=== PATIENT | female | born 1965 | race Caucasian/White ===

== ENCOUNTER 2019-12-09 09:24 | Outpatient (CLI) | payer BC, OTHER ==
[2019-12-09 17:16] LABS: SARS-CoV-2 MS2 Positive; SARS-CoV-2 N Gene Negative; SARS-CoV-2 S Gene Negative; SARS-CoV-2 orf1ab Negative
== END 2019-12-09 09:25 | disposition home or self-care (01) ==
LOC: ERS 09:24 → LAB 09:25
PROVIDERS: ATTEND Internal Medicine Gastroenterology
DX: R13.10 Dysphagia, unspecified (principal); Z11.59 Encounter for screening for other viral diseases
CPT/HCPCS: 87635; U0003

== ENCOUNTER 2019-12-11 08:57 | Outpatient (CLI) | payer BC ==
--- NOTE | 2019-12-11 11:46 | RAD ---
Barium swallow esophagram double contrast: DATE: 12/11/2019 HISTORY: 54-year-old female with dysphagia R 13.10 TECHNIQUE: Upright administration of effervescent granules, thick liquid barium, and barium tablet with water. Prone SOSA straw administration of thin liquid barium. COMPARISON: 07/11/2012 from [facility]. FINDINGS: The previously demonstrated small sliding hiatal hernia has become larger, now with approximately 20% of the stomach superior to the diaphragm. Barium tablet passes rapidly into the stomach; no high-grade stricture. The esophagus has normal motility, distensibility, and mucosal pattern. Signifi cant gastroesophageal reflux is demonstrated. There is a minimal Schatzki ring which does not cause significant stenosis. IMPRESSION: 1. Interval increase in size of small-moderate size sliding hiatal hernia, now involving 20% of the s tomach. 2. Minimal Schatzki ring does not cause significant stenosis. 3. Significant gastroesophageal reflux.
== END 2019-12-11 08:58 | disposition home or self-care (01) ==
LOC: RAD 08:57
PROVIDERS: ATTEND Internal Medicine Gastroenterology
DX: R13.10 Dysphagia, unspecified (principal); K21.9 Gastro-esophageal reflux disease without esophagitis; K22.2 Esophageal obstruction; K44.9 Diaphragmatic hernia without obstruction or gangrene
CPT/HCPCS: 74220

== ENCOUNTER 2019-12-24 06:38 | Outpatient (CLI) | payer BC, OTHER ==
[2019-12-24 17:35] LABS: SARS-CoV-2 MS2 Positive; SARS-CoV-2 N Gene Negative; SARS-CoV-2 S Gene Negative; SARS-CoV-2 orf1ab Negative
== END 2019-12-24 06:39 | disposition home or self-care (01) ==
LOC: LABBT 06:38
PROVIDERS: ATTEND Surgery
DX: Z01.812 Encounter for preprocedural laboratory examination (principal); Z11.59 Encounter for screening for other viral diseases; K44.9 Diaphragmatic hernia without obstruction or gangrene; K21.9 Gastro-esophageal reflux disease without esophagitis
CPT/HCPCS: 87635; U0003

== ENCOUNTER 2019-12-29 07:00 | Outpatient (CLI) | payer BC, OTHER ==
[2019-12-29 12:58] LABS: #Basophils 0.1 thou/uL (0.0-0.2); #Eosinphils 0.2 thou/uL (0.0-0.7); #Lymphocytes 1.8 thou/uL (1.20-3.40); #Monocytes 0.7 thou/uL (0.11-0.59); #Neutrophils 4.8 thou/uL (1.40-6.50); %Basophils 0.8 % (0.0-1.0); %Eosinophils 2.9 % (0.0-10.0); %Lymphocytes 23.8 % (21.0-51.0); %Monocytes 8.9 % (0.0-10.0); %Neutrophils 63.7 % (42.0-75.0); Hemoglobin 13.6 g/dL (12.0-16.0); Mean Corpuscular HGB CONC 32.9 g/dL (32.0-36.0); Mean Corpuscular Hemoglobin 30.4 pg (27.0-31.0); Mean Corpuscular Volume 92.5 fL (78.0-98.0); Mean Platelet Volume 9.5 fL (7.4-10.4); Platelet Count 191 thou/uL (130-400); RBC Distribution Width 11.5 % (11.5-14.5); Red Blood Cell (RBC) Count 4.47 mill/uL (4.20-5.40); White Blood Cell (WBC) Count 7.6 thou/uL (4.8-10.8)
[2019-12-29 13:22] LABS: ALT (SGPT) 53 U/L (8-55); AST (SGOT) 33 U/L (5-34); Albumin 4.2 g/dL (3.5-5.0); Alkaline Phosphatase 61 U/L (40-110); Anion Gap 12 mmol/L (10-20); BUN (Urea Nitrogen) 18 mg/dL (9.8-20.1); Bilirubin, Total 0.5 mg/dL (0.2-1.2); Calc. Creatinine Clearance 0 mL/min (70-130); Calcium 9.2 mg/dL (7.8-10.44); Carbon Dioxide 29 mmol/L (22-29); Chloride 105 mmol/L (98-107); Estimated GFR-MDRD 76; Globulin 3.1 g/dL (2.4-3.5); Glucose 86 mg/dL (70-105); Potassium 3.5 mmol/L (3.5-5.1); Protein, Total 7.3 g/dL (6.0-8.3); Sodium 142 mmol/L (136-145)
[2019-12-29 22:22] LABS: SARS-CoV-2 MS2 Positive; SARS-CoV-2 N Gene Negative; SARS-CoV-2 S Gene Negative; SARS-CoV-2 orf1ab Negative
== END 2019-12-29 07:01 | disposition home or self-care (01) ==
LOC: LABBT 07:00
PROVIDERS: ATTEND Surgery
DX: Z01.818 Encounter for other preprocedural examination (principal); Z11.59 Encounter for screening for other viral diseases; K21.9 Gastro-esophageal reflux disease without esophagitis; K44.9 Diaphragmatic hernia without obstruction or gangrene
CPT/HCPCS: 80053; 85025; 87635; 93005; 93010; U0003

== ENCOUNTER 2019-12-31 10:10 | Inpatient (IN) | payer BC, OTHER ==
[2019-12-29 11:34] VITALS: BMI 23.6
[2019-12-31] MEDS ORDERED: Scopolamine 1.5 mg/72 hour Patch ONE (10:54)
[2019-12-31] MEDS ORDERED: Midazolam HCl 2 mg/2 ml Vial ONE (10:54)
[2019-12-31] MEDS ORDERED: Ethanolamine Oleate 5% 2 ml Ampule ONE (11:08)
[2019-12-31] MEDS ORDERED: Bupivacaine 0.25% HCL 30 ML VIAL ONE (11:08)
[2019-12-31] MEDS ORDERED: Lidocaine 1% w/Epinephrine 1:100K 20 ML VIAL ONE (11:08)
[2019-12-31] MEDS ORDERED: Fentanyl 250 MCG/5 ML VIAL ONE (11:40)
[2019-12-31] MEDS ORDERED: Famotidine/PF 20 mg/2ml Vial ONE (11:54)
[2019-12-31] MEDS ORDERED: Propofol 500 MG/50 ML VIAL ONE (11:55)
[2019-12-31] MEDS ORDERED: Lidocaine 1% PF 5 ML VIAL ONE (13:09)
[2019-12-31] MEDS ORDERED: EPHEDRINE 25 MG/5 ML SYRINGE ONE (13:09)
[2019-12-31] MEDS ORDERED: Rocuronium Bromide 10 MG/ML (10ML VIAL) ONE (13:09)
[2019-12-31] MEDS ORDERED: Glycopyrrolate 0.2 MG/ML 5 ML SYRINGE ONE (13:09)
[2019-12-31] MEDS ORDERED: Metoclopramide HCl 10 MG/2 ML VIAL ONE (13:09)
[2019-12-31] MEDS ORDERED: Dexamethasone 20 MG/5 ML VIAL ONE (13:09)
[2019-12-31] MEDS ORDERED: PROPOFOL 200 MG/20 ML VIAL ONE (13:09)
[2019-12-31] MEDS ORDERED: Ondansetron PF 4 MG/2 ML Vial ONE (13:09)
[2019-12-31] MEDS ORDERED: SUGAMMADEX SODIUM 200 MG/2 ML VIAL ONE (13:26)
[2019-12-31] MEDS ORDERED: PROPOFOL 20 ML ONE (13:27)
[2019-12-31] MEDS ORDERED: diphenhydrAMINE 50 MG/ML VIAL IVP PRN ×2 (13:56→15:11)
[2019-12-31] MEDS ORDERED: Hydrocodone-Acetamin 15 ML UDCUP PO PRN (13:56)
[2019-12-31] MEDS ORDERED: Ondansetron PF 4 MG/2 ML Vial IVP PRN ×2 (13:56→15:11)
[2019-12-31] MEDS ORDERED: hydrALAZINE 20 MG/ML VIAL SLOW IVP PRN (13:56)
[2019-12-31] MEDS ORDERED: Dextrose 5% in Water 1,000 ML IV PRN (13:56)
[2019-12-31] MEDS ORDERED: Promethazine HCl 25 MG/ML VIAL IM PRN ×2 (13:56→15:11)
[2019-12-31] MEDS ORDERED: Dextrose 50% Abboject 50 ML SYRINGE SLOW IVP PRN (13:56)
[2019-12-31] MEDS ORDERED: Sodium Chloride 0.9% (PF) 10 ML VIAL FS PRN (14:23)
[2019-12-31] MEDS ORDERED: Fentanyl 100 MCG/2 ML VIAL ONE (14:49)
[2019-12-31] MEDS ORDERED: Naloxone HCl 0.4 mg/ml Vial IV PRN (15:11)
[2019-12-31] MEDS ORDERED: fentaNYL Citrate/PF 2,000 MCG in Sodium Chloride 0.9% 60 ML IV PRN (15:11)
[2019-12-31] MEDS ORDERED: Zolpidem Tartrate 5 MG TAB PO PRN (15:11)
[2019-12-31] MEDS ORDERED: diphenhydrAMINE 25 MG CAP PO PRN (15:11)
[2019-12-31] MEDS ORDERED: diphenhydrAMINE 50 MG/ML VIAL IM PRN (15:11)
[2019-12-31] MEDS ORDERED: Communication Order-Pharmacy FS PRN (15:15)
[2019-12-31] MEDS ORDERED: Promethazine HCl 25 MG/ML VIAL ONE (15:46)
[2019-12-31] MEDS: D5 1/2 NS w/20 mEq KCL 1,000 ML IV SCH ×2 (17:49→20:33)
[2019-12-31] MEDS: CEFAZOLIN 2 GM in Premix Bag 1 BAG IVPB SCH (17:50)
[2019-12-31] MEDS: Ketorolac Tromethamine 30 MG/ML VIAL IVP SCH ×2 (17:53→23:36)
[2019-12-31] MEDS ORDERED: Ketorolac Tromethamine 30 MG/ML VIAL IVP SCH (18:00)
[2019-12-31] MEDS: Carvedilol 3.125 MG TAB PO SCH (20:35)
[2019-12-31] MEDS ORDERED: Amlodipine 5 MG TAB PO SCH (21:00)
[2020-01-01] MEDS: CEFAZOLIN 2 GM in Premix Bag 1 BAG IVPB SCH (03:02)
[2020-01-01] MEDS: D5 1/2 NS w/20 mEq KCL 1,000 ML IV SCH (05:33)
[2020-01-01] MEDS: Ketorolac Tromethamine 30 MG/ML VIAL IVP SCH (05:33)
[2020-01-01 05:44] LABS: #Lymphocytes 0.7 thou/uL (1.20-3.40); #Monocytes 0.6 thou/uL (0.11-0.59); #Neutrophils 9.6 thou/uL (1.40-6.50); %Basophils 0.1 % (0.0-1.0); %Eosinophils 0.1 % (0.0-10.0); %Monocytes 5.5 % (0.0-10.0); %Neutrophils 88.4 % (42.0-75.0); Mean Corpuscular Hemoglobin 30.9 pg (27.0-31.0); Mean Corpuscular Volume 91.1 fL (78.0-98.0); Mean Platelet Volume 10.4 fL (7.4-10.4); Platelet Count 162 thou/uL (130-400); RBC Distribution Width 11.3 % (11.5-14.5); Red Blood Cell (RBC) Count 4.19 mill/uL (4.20-5.40); White Blood Cell (WBC) Count 10.8 thou/uL (4.8-10.8)
[2020-01-01 06:00] LABS: Anion Gap 8 mmol/L (10-20); BUN (Urea Nitrogen) 8 mg/dL (9.8-20.1); Calc. Creatinine Clearance 91 mL/min (70-130); Calcium 8.6 mg/dL (7.8-10.44); Carbon Dioxide 29 mmol/L (22-29); Chloride 104 mmol/L (98-107); Estimated GFR-MDRD 78; Glucose 160 mg/dL (70-105); Potassium 4.2 mmol/L (3.5-5.1); Sodium 137 mmol/L (136-145)
[2020-01-01] MEDS ORDERED: Lisinopril 20 MG TAB PO SCH (09:00)
[2020-01-01] MEDS ORDERED: Enoxaparin Sodium 40 MG/0.4 ML SYRINGE SC SCH (09:00)
[2020-01-01] MEDS ORDERED: Pantoprazole 40 MG VIAL IVP SCH (09:00)
--- NOTE | 2020-01-01 09:04 | RAD ---
Esophagram HISTORY: Hiatal hernia repair. Esophageal dilatation. FINDINGS: Small amount of Gastrografin administered. It passes immediately through the GE junction. There is no evidence of obstruction or leak. IMPRESSION : No abnormalities are demonstrated.
[2020-01-01] MEDS: Carvedilol 3.125 MG TAB PO SCH (10:33)
[2020-01-01] MEDS ORDERED: GASTROGRAFIN 30 ML BOT ONE (10:47)
[2020-01-01 11:19] VITALS: BP 133/75; TEMP 98.1
--- NOTE | 2020-01-01 12:51 | OP ---
DATE OF PROCEDURE: 01/01/2020 PREOPERATIVE DIAGNOSES: Hiatal hernia with severe gastroesophageal reflux and esophageal dysmotility. PROCEDURES PERFORMED: Laparoscopic hiatal hernia repair with Toupet fundoplication and intraoperative esophagogastroscopy. INDICATIONS: The patient is a 54-year-old female with severe gastroesophageal reflux. EGD showed a large hiatal hernia. Manometry showed esophageal dysmotility. FINDINGS: Moderately large hiatal hernia with a large diaphragmatic defect. The esophagus was not short, was able to get it all down. DESCRIPTION OF PROCEDURE: After informed consent was obtained, the patient was taken to the operating room, and given general endotracheal anesthesia. She was placed in the supine position. Abdomen was prepped and draped in usual fashion. Local anesthesia was infiltrated subcutaneously and deep, and a 5 mm incision was performed approximately 8 inches below the xiphoid slightly to the left. Veress needle was inserted. Drop test was performed. Pneumoperitoneum was created to a volume of 2 L of carbon dioxide. Utilizing a bladeless 5-mm trocar and 0-degree laparoscope, direct visual entry into the abdominal cavity was performed. Pneumoperitoneum was created to a pressure of 15 mmHg. The patient was placed in a steep reverse Trendelenburg position. Aruna liver retractor was inserted. Left lobe of the liver retracted superiorly. A 5 mm port was placed just to the left of the falciform, 8 mm port was placed left subcostal, and another 5-mm port was placed inferiorly on the left side. The stomach was partially reduced, and the gastrophrenic ligament was divided utilizing the LigaSure. The peritoneum was opened anteriorly with the LigaSure and down upon the left felix. Then, the omentum was taken off the greater curvature utilizing the LigaSure. Short gastrics divided with the LigaSure, and the left felix defined with the LigaSure. Using blunt dissection, first of all the posterior vagus nerve was identified and preserved. A subesophageal plane was developed, and a Melissa drain inserted for further retraction and dissection. The entire hiatal opening was then further dissected and opened, so that the esophagus and stomach could be fully returned to the abdomen. A 40-Kinyarwanda bougie was inserted, directed into the stomach. Over the bougie, a posterior crural plication was performed utilizing 0 Ethibond and Sew-Right and Ti-Knot device. Then, the fundus was grasped and brought to the right side of the stomach. It was sutured to the left felix with interrupted 2-0 silk sutures tied intracorporeally with 3 sutures there, then 3 sutures of the fundus to the right side of the esophagus. Then, the left side of the fundus was then sutured to the left felix with interrupted 2-0 silk sutures tied intracorporeally and to the left of the esophagus. The bougie was removed. Intraoperative endoscopy was performed. The video endoscope inserted under direct vision. There was no bleeding. The scope was retroflexed. There was no torsion. No air leak. Stomach decompressed. Scope was removed. At this point, trocars and retractors were removed. Skin was closed with interrupted 4-0 Rapide. Dermabond was applied. The patient tolerated the procedure well, transferred to Recovery in good condition. Sponge and needle count verified correct x2. Job ID: [id number]
--- NOTE | 2020-01-01 13:30 | DIS ---
DATE OF ADMISSION: 12/31/2019 DATE OF DISCHARGE: 01/01/2020 DISCHARGE DIAGNOSIS: Hiatal hernia with gastroesophageal reflux and esophageal dysmotility. PROCEDURES DURING ADMISSION: Laparoscopic hiatal hernia repair, Toupet fundoplication; intraoperative esophagogastroscopy; postoperative Gastrografin swallow. HOSPITAL COURSE: The patient was admitted, taken to the operating room, where she underwent a laparoscopic repair of her hiatal hernia with Toupet fundoplication. Postoperatively, she is doing well. Her pain is minimal. Her x-ray is fine. She is tolerating liquids. She is discharged home on hydrocodone and Zofran. She also requested some Diflucan as she typically gets yeast infections. She will stay on a liquid diet for 2 weeks. She will follow up with me in 2 weeks. Job ID: [id number]
== END 2020-01-01 11:55 | disposition home or self-care (01) | DRG 328 ==
LOC: SDC 10:10 → SJJU 13:57
PROVIDERS: ADMIT Surgery; ATTEND Surgery
PROC: 0BQT4ZZ Repair Diaphragm, Percutaneous Endoscopic Approach (ICD-10-PCS; principal; 2020-01-01)
PROC: 0DV44ZZ Restriction of Esophagogastric Junction, Percutaneous Endoscopic Approach (ICD-10-PCS; 2020-01-01)
PROC: 0DJ68ZZ Inspection of Stomach, Via Natural or Artificial Opening Endoscopic (ICD-10-PCS; 2020-01-01)
DX: K44.9 Diaphragmatic hernia without obstruction or gangrene (principal); K21.9 Gastro-esophageal reflux disease without esophagitis; K22.8 Other specified diseases of esophagus; Z11.59 Encounter for screening for other viral diseases
CPT/HCPCS: 36415; 74240; 80048; 80053; 85025; 87635; 93005; 94760; J0690; J1100; J1430; J1650; J1885; J2001; J2250; J2405; J2550; J2704; J2765; J3010; J3480; J3490; Q9963; S0020; S0028; U0003

== ENCOUNTER 2020-04-01 09:37 | Outpatient (CLI) | payer BC, OTHER ==
[2020-04-01 16:41] LABS: SARS-CoV-2 MS2 Positive; SARS-CoV-2 N Gene Negative; SARS-CoV-2 S Gene Negative; SARS-CoV-2 by NAA Not Detected (NotDetected); SARS-CoV-2 orf1ab Negative
== END 2020-04-01 09:38 | disposition home or self-care (01) ==
LOC: LABSCS 09:37
PROVIDERS: ATTEND Internal Medicine Gastroenterology
DX: R11.10 Vomiting, unspecified (principal); Z20.828 Contact with and (suspected) exposure to other viral communicable diseases
CPT/HCPCS: 87635; U0003

== ENCOUNTER 2020-04-05 07:47 | Outpatient (CLI) | payer BC ==
--- NOTE | 2020-04-05 09:23 | RAD ---
XR UGI Air Contrast History: Failed Ghazala fundoplication Comparison: Esophagram January 01, 2020 Findings: Patient was brought to the fluoroscopy suite. All questions were answered. One quarter dose of gas-forming crystals was given to the patient. Thick liquid barium bolus administered orally. Primary and secondary peristalsis was normal. There is reflux to the mid one third esophagus. Partial unwrapping of the Ghazala fundoplication with a small hernia. Numerous tertiary contractions with esophageal sugar. Next patient was put in the SOSA position. Thin liquid barium was administered via straw. Again primar y and secondary peristalsis was normal. No extrinsic mass effect or diverticulum. Small sliding hiatal hernia with a complete unwrapping of the Ghazala fundoplication. Reflux to the upper one third esophagus. Numerous tertiary contractions and esophageal shiver. Impression: Findings of partial fundoplication unwrapping with small sliding hiatal hernia and reflux the upper one third thoracic esophagus. Fluoroscopy time: 1.4 minutes
== END 2020-04-05 07:48 | disposition home or self-care (01) ==
LOC: RAD 07:47
PROVIDERS: ATTEND Internal Medicine Gastroenterology
DX: R11.10 Vomiting, unspecified (principal); K21.9 Gastro-esophageal reflux disease without esophagitis; K44.9 Diaphragmatic hernia without obstruction or gangrene
CPT/HCPCS: 74246

== ENCOUNTER 2020-04-22 15:21 | Outpatient (CLI) | payer BC ==
--- NOTE | 2020-04-22 16:35 | MMO ---
Bilateral MAMMO Bilat Screen [facility]. CLINICAL HISTORY: Patient is 54 years old and is seen for screening. The patient has the following family history of breast cancer: maternal aunt. The patient has no personal history of cancer. The patient has a history of left Excisional Biopsy - benign. VIEWS: The views performed were: bilateral craniocaudal with tomosynthesis; bilateral mediolateral oblique with tomosynthesis; and bilateral exaggerated craniocaudal. FILMS COMPARED: The present examination has been compared to prior imaging studies performed at [facility] on 11/13/2016, 06/26/2017 and 02/27/2019. This study has been interpreted with the assistance of computer-aided detection. MAMMOGRAM FINDINGS: The breasts are heterogeneously dense, which could obscure a lesion on mammography. There are left sided post-operative changes. There are no suspicious masses, suspicious calcifications, or new areas of architectural distortion. IMPRESSION: THERE IS NO MAMMOGRAPHIC EVIDENCE OF MALIGNANCY. A ROUTINE FOLLOW-UP MAMMOGRAM IN 1 YEAR IS RECOMMENDED. THE RESULTS OF THIS EXAM WERE SENT TO THE PATIENT. ACR BI-RADS Category 2 - Benign finding MAMMOGRAPHY NOTE: 1. A negative mammogram report should not delay a biopsy if a dominant of clinically suspicious mass is present. 2. Approximately 10% to 15% of breast cancers are not detected by mammography. 3. Adenosis and dense breasts may obscure an underlying neoplasm. Reported by: ALEXIS OGLESBY MD Electonically Signed: [id number]
== END 2020-04-22 15:22 | disposition home or self-care (01) ==
LOC: BICMAMMO 15:21
DX: Z12.31 Encounter for screening mammogram for malignant neoplasm of breast (principal); Z80.3 Family history of malignant neoplasm of breast; Z91.89 Other specified personal risk factors, not elsewhere classified
CPT/HCPCS: 77063; 77067

== ENCOUNTER 2020-05-02 07:41 | Outpatient (CLI) | payer BC, OTHER ==
[2020-05-02 15:02] LABS: Anion Gap 12 mmol/L (10-20); BUN (Urea Nitrogen) 21 mg/dL (9.8-20.1); Calc. Creatinine Clearance 0 mL/min (70-130); Calcium 9.1 mg/dL (7.8-10.44); Carbon Dioxide 27 mmol/L (22-29); Chloride 104 mmol/L (98-107); Estimated GFR-MDRD 78; Glucose 80 mg/dL (70-105); Potassium 3.8 mmol/L (3.5-5.1); Sodium 139 mmol/L (136-145)
[2020-05-03 15:28] LABS: SARS-CoV-2 MS2 Positive; SARS-CoV-2 N Gene Negative; SARS-CoV-2 S Gene Negative; SARS-CoV-2 by NAA Not Detected (NotDetected); SARS-CoV-2 orf1ab Negative
== END 2020-05-02 07:42 | disposition home or self-care (01) ==
LOC: LABBT 07:41
PROVIDERS: ATTEND Surgery
DX: Z01.812 Encounter for preprocedural laboratory examination (principal); K44.9 Diaphragmatic hernia without obstruction or gangrene; Z20.828 Contact with and (suspected) exposure to other viral communicable diseases
CPT/HCPCS: 80048; 87635; U0003

== ENCOUNTER 2020-05-05 09:33 | Inpatient (IN) | payer BC, OTHER ==
[2020-05-05] MEDS ORDERED: PHENYLEPHRINE-NS 100 MCG/ML 10 ML SYRINGE ONE (09:54)
[2020-05-05] MEDS ORDERED: Glycopyrrolate 0.2 MG/ML 5 ML SYRINGE ONE (09:54)
[2020-05-05] MEDS ORDERED: Rocuronium Bromide 10 MG/ML (10ML VIAL) ONE (09:54)
[2020-05-05] MEDS ORDERED: Ondansetron PF 4 MG/2 ML Vial ONE ×2 (09:54→14:21)
[2020-05-05] MEDS ORDERED: PROPOFOL 200 MG/20 ML VIAL ONE (09:54)
[2020-05-05] MEDS ORDERED: Esmolol 100 MG/10 ML VIAL ONE (09:54)
[2020-05-05] MEDS ORDERED: Scopolamine 1.5 mg/72 hour Patch ONE (10:36)
[2020-05-05] MEDS ORDERED: Midazolam HCl 2 mg/2 ml Vial ONE (10:36)
[2020-05-05] MEDS ORDERED: Bupivacaine/Epinephrine 0.25% 30 ML VIAL ONE (11:03)
[2020-05-05] MEDS ORDERED: Fentanyl 100 MCG/2 ML VIAL ONE ×3 (11:12→14:36)
[2020-05-05] MEDS ORDERED: Famotidine/PF 20 mg/2ml Vial ONE (11:12)
[2020-05-05] MEDS ORDERED: Promethazine HCl 25 MG/ML VIAL IM PRN (12:46)
[2020-05-05] MEDS ORDERED: HYDROmorphone 2 MG/ML VIAL SLOW IVP PRN (12:46)
[2020-05-05] MEDS ORDERED: Promethazine HCl 25 MG/ML VIAL SLOW IVP PRN (12:46)
[2020-05-05] MEDS ORDERED: Promethazine HCl 25 MG/ML VIAL ONE (13:55)
[2020-05-05] MEDS: Sodium Chloride 0.9% 1,000 ML IV SCH (15:30)
[2020-05-05] MEDS ORDERED: Fentanyl 100 MCG/2 ML VIAL SLOW IVP PRN (15:31)
[2020-05-05] MEDS ORDERED: Hydrocodone-Acetamin 15 ML UDCUP PO PRN (15:31)
[2020-05-05] MEDS ORDERED: Dextrose 50% Abboject 50 ML SYRINGE SLOW IVP PRN (15:31)
[2020-05-05] MEDS ORDERED: Dextrose 5% in Water 1,000 ML IV PRN (15:31)
[2020-05-05] MEDS ORDERED: hydrALAZINE 20 MG/ML VIAL SLOW IVP PRN (15:31)
[2020-05-05 15:48] VITALS: BMI 22.0
[2020-05-05] MEDS: Ondansetron PF 4 MG/2 ML Vial IVP PRN (16:13)
[2020-05-05] MEDS: Fentanyl 100 MCG/2 ML VIAL SLOW IVP PRN ×2 (16:14→20:16)
[2020-05-05] MEDS ORDERED: Evolocumab [Repatha Sureclick] 140 MG/ML Pen.Injctr SC SCH (16:15)
[2020-05-05] MEDS: Promethazine HCl 12.5 MG in Sodium Chloride 0.9% 50 ML IVPB PRN ×2 (18:37→22:30)
[2020-05-05] MEDS: Pantoprazole 40 MG VIAL IVP SCH (20:12)
[2020-05-05] MEDS: Enoxaparin Sodium 40 MG/0.4 ML SYRINGE SC SCH (20:12)
[2020-05-05] MEDS: Carvedilol 3.125 MG TAB PO SCH (20:56)
[2020-05-05] MEDS: Amlodipine 5 MG TAB PO SCH (20:56)
[2020-05-06] MEDS: Ondansetron PF 4 MG/2 ML Vial IVP PRN (01:49)
[2020-05-06] MEDS: Promethazine HCl 12.5 MG in Sodium Chloride 0.9% 50 ML IVPB PRN (03:25)
[2020-05-06] MEDS: Labetalol HCl 100 MG/20 ML VIAL SLOW IVP PRN ×2 (04:02→12:20)
--- NOTE | 2020-05-06 07:17 | PDOC.GSPN ---
Surgery Progress Note: Subj - Subjective Patient reports: nausea Narrative: Mrs. Bowers is a 54 year old female who is 1 day s/p hiatal hernia repair with mesh placement and fundoplication procedure. She complains of ongoing severe nausea and dry heaving. She reports that she has had similar episodes after previous surgeries, felt to be due to anesthesia, but this episode is worse despite her current antiemetic regime. Every time she stands, she feels dizzy and weak. She feels better when she lays still and keeps her eyes closed. She also complains of abdominal pain, more so on the left side. Reports subjective fever, sweating, and chills, although her temperature remains afebrile. Patient has only been able to ambulate back and forth to the bathroom secondary to her nausea. She has not been able to eat anything. Denies SAUCEDO, shortness of breath, cough, chest pain, dysuria. Surgery Progress Note: Obj - Vital signs Vital signs: Vital Signs - Most Recent Temp Pulse Resp BP Pulse Ox 97.9 F 88 17 165/79 H 96 05/06/20 03:54 05/06/20 04:02 05/06/20 03:54 05/06/20 04:28 05/06/20 03:54 - Physical Exam General: moderate distress Cardiovascular: regular rate and rhythm Respiratory: clear to auscultation Abdomen: soft, nondistended, positive bowel sounds, appropriately tender Wound: healing well Surgery Progress Note: Results - Labs Lab results: Laboratory Results - last 12 hr 05/06/20 06:50 POC Glucose 150 H Surgery Progress Note: A/P - Plan Plan: s/p hiatal hernia repair with mesh and fundoplication procedure- Patient has been unable to eat or ambulate secondary to her nausea. Per nursing staff, patient has refused pain medication and antiemetic dose this morning because she does not feel that they are working. She does have a scopolamine patch in place. Bedside blood sugar was 150. HTN: Patient's blood pressure is elevated in the 160s/80s range. She has not taken her home blood pressure medications yet today. Addendum - Physician - Physician Attestation Date/Time: 05/06/20 1867 I personally performed or re-performed the physical examination and medical decision making. I have verified all student documentation or findings, including history, physical exam and/or medical decision making. Severe nausea. Not suprising given extent of dissection and redo nature of the surgery. ] Add dexamethasone CXR to re-evaluate for Ptx
[2020-05-06] MEDS: Sodium Chloride 0.9% 1,000 ML IV SCH (08:04)
[2020-05-06] MEDS: Lisinopril 20 MG TAB PO SCH (10:10)
[2020-05-06] MEDS: Pantoprazole 40 MG VIAL IVP SCH ×2 (10:11→22:02)
[2020-05-06] MEDS: Carvedilol 3.125 MG TAB PO SCH ×2 (10:11→22:01)
[2020-05-06] MEDS ORDERED: Dexamethasone 4 MG in Sodium Chloride 0.9% 50 ML IVPB SCH (10:57)
--- NOTE | 2020-05-06 12:31 | RAD ---
RADIOGRAPH CHEST 1 VIEW: DATE: 05/06/2020 TIME: 12:20 PM HISTORY: 54-year-old female status post revision hiatal hernia repair. Rule out pneumothorax. Dr. Quiroz reported the small pneumothorax by telephone to Dr. Gorman at 12:26 PM 05/06/2020 COMPARISON: none FINDINGS: There is a small left apical pneumothorax, occupying approximately 5-10% volume of the left thoracic cavity. The left diaphragm is elevated, and there is subsegmental atelectasis at the left lung base. The rest of the lung bowers are clear. No pneumoperitoneum identified. No cardiomegaly or mediastinal widening. IMPRESSION: 1) the small left apical pneumothorax. 2) subsegmental atelectasis at left base adjacent to the elevated left hemidiaphragm.
[2020-05-06] MEDS ORDERED: Dexamethasone 4 mg/ml Vial SLOW IVP SCH (13:15)
[2020-05-06] MEDS: Promethazine HCl 25 MG/ML VIAL IM PRN ×2 (17:31→22:14)
[2020-05-06] MEDS: Acetaminophen W/ Codeine 5 ML UDCUP PO PRN (18:21)
[2020-05-06] MEDS: D5 1/2 NS w/20 mEq KCL 1,000 ML IV SCH (18:24)
[2020-05-06] MEDS: Amlodipine 5 MG TAB PO SCH (22:00)
[2020-05-06] MEDS: Enoxaparin Sodium 40 MG/0.4 ML SYRINGE SC SCH (22:03)
[2020-05-07] MEDS: D5 1/2 NS w/20 mEq KCL 1,000 ML IV SCH ×3 (01:50→14:32)
[2020-05-07] MEDS: Labetalol HCl 100 MG/20 ML VIAL SLOW IVP PRN ×2 (01:50→06:05)
[2020-05-07] MEDS: Ondansetron PF 4 MG/2 ML Vial IVP PRN (01:59)
[2020-05-07] MEDS: Acetaminophen W/ Codeine 5 ML UDCUP PO PRN (06:43)
[2020-05-07] MEDS: Promethazine HCl 12.5 MG in Sodium Chloride 0.9% 50 ML IVPB PRN ×2 (07:12→15:08)
[2020-05-07] MEDS: Pantoprazole 40 MG VIAL IVP SCH ×2 (08:44→22:07)
[2020-05-07] MEDS: Carvedilol 3.125 MG TAB PO SCH ×2 (08:44→22:04)
[2020-05-07] MEDS: Dexamethasone 4 mg/ml Vial SLOW IVP SCH (08:44)
[2020-05-07] MEDS: Lisinopril 20 MG TAB PO SCH (08:45)
[2020-05-07] MEDS: Fluconazole In NaCl,Iso-Osm 100 MG in Admixture Fee 2 EACH IVPB SCH (14:30)
[2020-05-07] MEDS: Promethazine HCl 25 MG/ML VIAL IM PRN (19:11)
[2020-05-07] MEDS: Simethicone Chewable 80 MG TAB PO PRN (22:03)
[2020-05-07] MEDS: Amlodipine 5 MG TAB PO SCH (22:04)
[2020-05-07] MEDS: Enoxaparin Sodium 40 MG/0.4 ML SYRINGE SC SCH (22:05)
[2020-05-08] MEDS: D5 1/2 NS w/20 mEq KCL 1,000 ML IV SCH ×2 (04:38→20:33)
[2020-05-08] MEDS: Acetaminophen W/ Codeine 5 ML UDCUP PO PRN (04:46)
[2020-05-08] MEDS: Promethazine HCl 12.5 MG in Sodium Chloride 0.9% 50 ML IVPB PRN (05:08)
--- NOTE | 2020-05-08 06:37 | PRG ---
DATE OF SERVICE: 05/07/2020 SUBJECTIVE: Postop day 2, redo Ghazala and a hiatal hernia repair. Ms. Bowers continues to not feel well. She has nearly intractable nausea that is only slightly improved. Blood pressures have been high because she missed her blood pressure medicines the night of surgery, improved today. She also notes more perineal irritation, which she says she always gets yeast infections when she has had antibiotics. She has been up and around a little bit. She is passing a small amount of gas. OBJECTIVE: VITAL SIGNS: She is afebrile and her vital signs are stable. ABDOMEN: Soft, appropriately tender. Wounds are healing well without evidence of infection or hernia. ASSESSMENT AND PLAN: Postop day 2, redo hiatal hernia repair. I expected swelling given the extent of dissection. I think this is likely to improve slowly. If symptoms not markedly improved by tomorrow, we will check a swallow. We will do a barium swallow test. We will add Diflucan. Expect slow improvement. Job ID: [id number]
[2020-05-08] MEDS: Lisinopril 20 MG TAB PO SCH (08:26)
[2020-05-08] MEDS: Carvedilol 3.125 MG TAB PO SCH ×2 (08:26→20:17)
[2020-05-08] MEDS: Ondansetron PF 4 MG/2 ML Vial IVP PRN ×2 (08:27→19:20)
[2020-05-08] MEDS: Pantoprazole 40 MG VIAL IVP SCH ×2 (08:27→20:22)
[2020-05-08] MEDS: Dexamethasone 4 mg/ml Vial SLOW IVP SCH (08:27)
--- NOTE | 2020-05-08 09:06 | PRG ---
DATE OF SERVICE: 05/08/2020 SUBJECTIVE: Ms. Bowers's pain was improved. She denies dyspnea. She still has intractable nausea, even swallowing pills with difficulties. OBJECTIVE: VITAL SIGNS: Afebrile. Vital signs stable. ABDOMEN: Her abdomen is soft, appropriately tender. Wounds are healing well. ASSESSMENT: Postop redo hiatal hernia repair with Ghazala fundoplication with mesh with ongoing nausea and inability to take much p.o. PLAN: Barium swallow today to rule out significant stenosis. If present, then she will need EGD by Gastroenterology. Job ID: [id number]
--- NOTE | 2020-05-08 10:16 | OP ---
DATE OF PROCEDURE: 05/05/2020 PREOPERATIVE DIAGNOSES: 1. Recurrent hiatal hernia. 2. Gastroesophageal reflux disease, severe with esophagitis. POSTOPERATIVE DIAGNOSES: 1. Recurrent hiatal hernia. 2. Gastroesophageal reflux disease, severe with esophagitis. PROCEDURES PERFORMED: 1. Laparoscopic redo hiatal hernia repair with conversion of Toupet wrap to Ghazala fundoplication. 2. Strattice mesh biologic placement for reinforcement of diaphragmatic repair. ANESTHESIA: General. ESTIMATED BLOOD LOSS: 50 mL. COMPLICATIONS: None. FINDINGS: There is recurrent hiatal hernia with previous Toupet wrap up in the chest. There is evidence of previous Toupet incomplete wrap. DESCRIPTION OF PROCEDURE: The patient was taken to the operating room and laid supine on the operating room table. After general anesthetic was obtained, the abdomen was prepped and draped in a sterile fashion. Left subcostal 5 mm Optiview trocar was placed in usual fashion and high-flow pneumoperitoneum was obtained. A 5 mm port was placed above the umbilicus, 5 mm port was placed to the right of the xiphoid. 5 mm incisions were placed right lateral and left lateral abdomen. Snake retractor was brought in through the right lower quadrant incision and used to raise the liver off the GE junction. Dissection was taken through the gastrohepatic ligament first exposing the caudate lobe of liver. This allowed finding of the right felix. There was evidence of recurrent hiatal hernia and the previous wrap was up in the chest. Sharply some of these adhesions were taken down. Sharply the previous sutures to the right diaphragmatic hiatus were taken down allowing the mediastinum to be entered. A circumferential dissection of the esophagus was started to be performed on the right side. The stomach was then flipped over and the wrap was stuck to the left felix of diaphragm. Sharply all these adhesions were taken down as well. There was no obvious injury to the stomach during this portion of the procedure and again the mediastinum was entered and a circumferential dissection of the esophagus was finished. The dissection on the left, the left chest cavity was entered, but the patient was hemodynamically stable throughout. This dissection allowed bringing the GE junction back down into the abdominal cavity. The previous wrap was already undone by taking the sutures down from the diaphragm. The previous wrap was able to be brought up more on top of the stomach and for the fundoplication. Ethibond suture was used to approximate the right and left crura posteriorly. This was done after a 44 bougie was brought in with its tip left in the antrum of the stomach. Care was taken to avoid making it too tight. This appeared to close the diaphragmatic hiatus. Next, the undone wrap was pulled up more on the patient's right, allowing for a 360-degree wrap and this fundus was sewn to the residual fundus on the other side loosely using 3 Ethibond sutures, the top of which obtained a little bit of the GE junction to hold the wrap in place. This was a very loose wrap. Strattice mesh was brought into the sterile field and cut to a 4 x 5 cm rectangle, placed into the abdominal cavity, laid across the diaphragmatic repair posteriorly. It was sutured in place with Ethibond and glued in place using fibrin glue and Tisseel mat. EGD scope was passed in the esophagus and stomach to the level of duodenum without obstruction. It was withdrawn to the proximal stomach to reveal the wrap, it did not appear too stenotic. The diaphragmatic hiatus was not too stenotic. EGD scope was used to decompress the stomach. It was pulled and removed. All port sites were infiltrated using local anesthetic. The snake liver retractor was removed under direct visualization without bleeding or injury. Pneumoperitoneum was let down. 4-0 Monocryl and Dermabond were used to close all skin incisions. The patient was sent to Recovery in stable condition. All instrument counts, needle counts, and lap counts were correct. Job ID: [id number]
--- NOTE | 2020-05-08 11:49 | RAD ---
Contrast swallow esophagram: 05/08/2020 HISTORY: 54-year-old female with persistent dysphagia and nausea after recent revision hiatal hernia surgery. TECHNIQUE: [employer] Professor view of chest obtained. Upright administration of small sips of Gastrografin. Brief, intermittent fluoroscopy. FINDINGS: [employer] Professor radiograph demonstrates small left apical pneumothorax, similar to 05/06/2020. Elevated left hemidiaphragm and subsegmental atelectasis at left base appears similar. No cardiomegaly or pulmonary edema. There is delayed drainage of Gastrografin from the lower esophagus through narrowed channel of esopha gogastric junction, before a small amount of the contrast reaches gastric lumen. Patient was only able to swallow a small amount of contrast material because of pain and nausea. No leakage is detected. IMPRESSION: Significantly delayed passage of contrast material through the postsurgical esophagogastric junction.
[2020-05-08] MEDS: Fluconazole In NaCl,Iso-Osm 100 MG in Admixture Fee 2 EACH IVPB SCH (12:51)
[2020-05-08] MEDS ORDERED: MD-Gastroview 120 ML BOT ONE (13:50)
[2020-05-08] MEDS: Amlodipine 5 MG TAB PO SCH (20:17)
[2020-05-08] MEDS: Simethicone Chewable 80 MG TAB PO PRN (20:21)
[2020-05-08] MEDS: Enoxaparin Sodium 40 MG/0.4 ML SYRINGE SC SCH (20:22)
[2020-05-09] MEDS: Acetaminophen W/ Codeine 5 ML UDCUP PO PRN ×2 (00:10→17:33)
[2020-05-09] MEDS: Labetalol HCl 100 MG/20 ML VIAL SLOW IVP PRN (00:20)
[2020-05-09] MEDS: Lisinopril 20 MG TAB PO SCH (08:03)
[2020-05-09] MEDS: Dexamethasone 4 mg/ml Vial SLOW IVP SCH (08:03)
[2020-05-09] MEDS: Pantoprazole 40 MG VIAL IVP SCH ×2 (08:04→21:23)
[2020-05-09] MEDS: Carvedilol 3.125 MG TAB PO SCH ×2 (08:04→21:22)
[2020-05-09 08:34] LABS: Anion Gap 14 mmol/L (10-20); BUN (Urea Nitrogen) 15 mg/dL (9.8-20.1); Calc. Creatinine Clearance 77 mL/min (70-130); Calcium 8.8 mg/dL (7.8-10.44); Carbon Dioxide 26 mmol/L (22-29); Chloride 98 mmol/L (98-107); Estimated GFR-MDRD 69; Glucose 110 mg/dL (70-105); Potassium 3.5 mmol/L (3.5-5.1); Sodium 134 mmol/L (136-145)
[2020-05-09 08:37] LABS: Hemoglobin 14.4 g/dL (12.0-16.0); Mean Corpuscular HGB CONC 33.7 g/dL (32.0-36.0); Mean Corpuscular Hemoglobin 31.5 pg (27.0-31.0); Mean Corpuscular Volume 93.5 fL (78.0-98.0); Mean Platelet Volume 9.8 fL (7.4-10.4); Platelet Count 202 thou/uL (130-400); RBC Distribution Width 11.2 % (11.5-14.5); Red Blood Cell (RBC) Count 4.58 mill/uL (4.20-5.40); White Blood Cell (WBC) Count 8.6 thou/uL (4.8-10.8)
[2020-05-09 09:50] LABS: Lymphocytes 21 % (21-51); MDiff Complete? YES; Monocytes 7 % (0-10); Neutrophil 71 % (42-75); Platelet Morphology Comment Appears Adequate; RBC Morphology Normal; Reactive Lymphocytes 1 % (0-10)
--- NOTE | 2020-05-09 10:30 | PRG ---
DATE OF SERVICE: 05/09/2020 SUBJECTIVE: Ms. Bowers actually feels slightly better today. She is able to swallow her pills with a sip of water. Her nausea has improved. OBJECTIVE: VITAL SIGNS: She is afebrile. Vital signs are stable. ABDOMEN: Soft. She is slightly distended. Her wounds are healing without infection. LABORATORY DATA: White blood cell count is 8, hemoglobin is 14. Sodium 134, potassium 3.5, creatinine is 0.85. ASSESSMENT: Postoperative redo hiatal hernia and completion Ghazala with postoperative intractable nausea and inability to swallow even liquids. PLAN: Discussed with Dr. Willis. He is planning on endoscopy later today. Hopefully ready to be discharged tomorrow. Job ID: [id number]
[2020-05-09] MEDS ORDERED: Lidocaine 1% PF 5 ML VIAL ONE (12:24)
[2020-05-09] MEDS ORDERED: Rocuronium Bromide 10 MG/ML (10ML VIAL) ONE (12:24)
[2020-05-09] MEDS ORDERED: PROPOFOL 200 MG/20 ML VIAL ONE (12:24)
[2020-05-09] MEDS ORDERED: PHENYLEPHRINE-NS 100 MCG/ML 10 ML SYRINGE ONE (12:24)
[2020-05-09] MEDS ORDERED: Fentanyl 100 MCG/2 ML VIAL ONE ×2 (12:52→14:53)
[2020-05-09] MEDS ORDERED: Bupivacaine HCl 0.5%/Epinephrine 1:200,000/PF 30 ml Vial ONE (12:58)
[2020-05-09] MEDS ORDERED: Bupivacaine/Epinephrine 0.25% 30 ML VIAL ONE (12:58)
[2020-05-09] MEDS ORDERED: Lidocaine 2% PF 5 ML VIAL ONE (12:59)
[2020-05-09] MEDS ORDERED: SUGAMMADEX SODIUM 200 MG/2 ML VIAL ONE (13:16)
[2020-05-09] MEDS ORDERED: Zolpidem Tartrate 5 MG TAB PO PRN (15:19)
[2020-05-09] MEDS ORDERED: fentaNYL Citrate/PF 2,000 MCG in Sodium Chloride 0.9% 60 ML IV PRN (15:19)
[2020-05-09] MEDS ORDERED: Naloxone HCl 0.4 mg/ml Vial IV PRN (15:19)
[2020-05-09] MEDS ORDERED: diphenhydrAMINE 50 MG/ML VIAL IM PRN (15:19)
[2020-05-09] MEDS ORDERED: diphenhydrAMINE 25 MG CAP PO PRN (15:19)
[2020-05-09] MEDS ORDERED: diphenhydrAMINE 50 MG/ML VIAL IVP PRN (15:19)
[2020-05-09] MEDS ORDERED: Ondansetron PF 4 MG/2 ML Vial IVP PRN (15:19)
[2020-05-09] MEDS ORDERED: Promethazine HCl 25 MG/ML VIAL IM PRN (15:19)
[2020-05-09] MEDS ORDERED: Communication Order-Pharmacy FS SCH (15:30)
[2020-05-09] MEDS: D5 1/2 NS w/20 mEq KCL 1,000 ML IV SCH (17:32)
--- NOTE | 2020-05-09 18:27 | OP ---
DATE OF PROCEDURE: 05/09/2020 PREOPERATIVE DIAGNOSIS: Stomach volvulus, found on esophagogastroduodenoscopy, status post redo hiatal hernia repair. POSTOPERATIVE DIAGNOSIS: Stomach volvulus, found on esophagogastroduodenoscopy, status post redo hiatal hernia repair. PROCEDURES PERFORMED: 1. Diagnostic laparoscopy. 2. Reduction of gastric volvulus. 3. Resuture of diaphragmatic hiatus. 4. Placement of percutaneous endoscopic gastrostomy tube to anchor. ANESTHESIA: General. ESTIMATED BLOOD LOSS: Minimal. COMPLICATIONS: None. SPECIMENS: None. DESCRIPTION OF PROCEDURE: The patient was taken to the operating room and laid supine on the operating room table. OG tube was used to decompress the stomach. The abdomen was prepped and draped in a sterile fashion. Left subcostal 5-mm Optiview trocar placed through the previous 8-mm port. All other 5 ports were replaced as they were at previous operation. The snake liver retractor was used to raise the liver off the GE junction again and the full body of the stomach was found to be flipped up and the distal greater curve and antrum of the stomach was up into the left chest cavity, not just mediastinum. The stomach was able to be reduced back down when it was. An OG tube was able to be placed into the stomach to decompress it. OG tube was removed and a 46 bougie was brought in, tip left along the antrum in the greater distal curve of the stomach. In the previous posterior repair, one of the sutures had torn. There was residual Strattice mesh in this area, that was redundant. The residual Strattice mesh was used as a pledgeted Ethibond suture down. An additional two sutures were placed. An additional suture was placed through the mesh to hold it in place. This was done over a 46 bougie. The diaphragmatic hiatus was thus closed without obvious space. The greater distal stomach and stomach in general did not appear ischemic. Decision was made to place a PEG tube to anchor. The EGD scope was passed from the esophagus and stomach to the level of duodenum. There was no stenosis at the diaphragmatic hiatus or at the GE junction. The stomach was filled. A needle was placed through the abdomen and a 1 cm incision was made. The introducer needle placed into the stomach. A wire was passed and grasped through the EGD scope, which was brought out through the valve, connected to the PEG. The PEG was then brought out and held in place using close bumper. The liver retractor had been removed. All port sites were infiltrated with local and removed. Pneumoperitoneum was let down. The incisions were all closed using 4-0 Monocryl and Dermabond. The patient will need this PEG tube to be remained in place for 3 to 4 weeks. The patient was sent to Recovery in stable condition. All instrument counts, needle counts, and lap counts were correct. Job ID: [id number]
[2020-05-09] MEDS: Fluconazole In NaCl,Iso-Osm 100 MG in Admixture Fee 2 EACH IVPB SCH (18:30)
[2020-05-09] MEDS: Amlodipine 5 MG TAB PO SCH (21:21)
[2020-05-09] MEDS: Simethicone Chewable 80 MG TAB PO PRN (21:21)
[2020-05-09] MEDS: Enoxaparin Sodium 40 MG/0.4 ML SYRINGE SC SCH (21:23)
[2020-05-10] MEDS: D5 1/2 NS w/20 mEq KCL 1,000 ML IV SCH ×2 (03:19→09:28)
[2020-05-10] MEDS ORDERED: Hydrocodone-Acetamin 15 ML UDCUP PO PRN (08:33)
[2020-05-10] MEDS ORDERED: Milk Of Magnesia 30 ML UDCUP PER TUBE PRN (08:33)
[2020-05-10] MEDS ORDERED: traMADol HCl 50 MG TAB PO PRN ×2 (08:34)
[2020-05-10] MEDS ORDERED: Fentanyl 100 MCG/2 ML VIAL SLOW IVP PRN ×2 (08:34)
--- NOTE | 2020-05-10 08:47 | OP ---
DATE OF PROCEDURE: 05/09/2020 PROCEDURE PERFORMED: Esophagogastroduodenoscopy. INDICATION FOR PROCEDURE: The patient is postop 4 days from a hiatal hernia repair. She was having significant reflux. The patient had a hernia repair on 01/01/2020, hiatal hernia repair and Toupet fundoplication, with persistent reflux symptoms, underwent an EGD on March 25, Dr. Matthew. Wrap was loose with concern for paraesophageal appearance per Dr. Matthew. The patient ultimately underwent repair last with takedown of the wrap for re-repair of the hiatus hernia with mesh and re-wrapping, now having persistent nausea, vomiting, cannot tolerate p.o. Reportedly EGD post wrap appeared normal. ANESTHESIA: TIVA. POSTPROCEDURE DIAGNOSES: 1. Gastroesophageal junction sits at about 37 cm from incisor orifice. 2. I can traverse the gastroesophageal junction and the wrap without much difficulty endoscopically. 3. On entering the stomach, there was a large pouch with no obvious outlet. We had to retroflex to get through a twisted area of mucosa that shows no signs of ischemia to reach the pyloric channel. Due to excessive looping of the scope at this point, the scope could not be advanced to the pyloric channel. I suspect this represents a paraesophageal hernia. Dr. Gorman was contacted. He came in, looked at the picture and he is going to bring the patient to the operating room. 4. About 1500 or 1700 mL of fluid were noted in the stomach consistent with functional gastric outlet obstruction. DESCRIPTION OF PROCEDURE: The patient was informed of risk, benefits possible complications of endoscopy including perforation, bleeding, reaction to medication, aspiration. Informed consent was obtained. The patient was brought to the endoscopy suite, where she was sedated in gradual fashion. When she was comfortable, bite block was placed in the incisural orifice. The endoscope was advanced through the esophagus, the stomach and into the antrum. The pylorus could not be traversed secondary to the tortuous nature of the scope at that time. The esophagus was normal with no retained fluid. The GE junction was traversed without difficulty. On entering the stomach, there was about 5485-0646 mL of clear fluid, gastric contents that had to be suctioned away. Once this was done, retroflexed views showed the wrap to appear to be intact, but could not fully distend the area and could not rule out a paraesophageal hernia. On trying to advance the scope down in the stomach we had to make a sharp turn to get to the area of the incisura and then there was a twist in the mucosa that we had to get past in full retroflexion, which made me believe that the area distal to that was above the diaphragm. Ultimately, the antrum and pyloric channel brought into view and the appearance of this anatomy was concerning for paraesophageal hernia. The pylorus could not be intubated secondary to the tortuous nature of the scope. At that time, Dr. Gorman was called to the endoscopy suite, where he viewed all images in the endoscopy. We repeated the scope through the anatomy so he could see what is going on. He agreed and he decided to proceed to the operating room for a diagnostic laparoscopy and possible repair. Job ID: [id number]
[2020-05-10] MEDS: Lisinopril 20 MG TAB PO SCH (09:26)
[2020-05-10] MEDS: Pantoprazole 40 MG VIAL IVP SCH (09:27)
[2020-05-10] MEDS: Carvedilol 3.125 MG TAB PO SCH ×2 (09:27→20:08)
[2020-05-10] MEDS: Dexamethasone 4 mg/ml Vial SLOW IVP SCH (09:27)
--- NOTE | 2020-05-10 15:56 | PRG ---
DATE OF SERVICE: 05/10/2020 SUBJECTIVE: The patient feels much better today. She is able to sips liquid diet and tolerating tube feeding. She is ambulating. She reports having minimal abdominal pain. There is no nausea or vomiting. OBJECTIVE: VITAL SIGNS: Temperature is 97.7, blood pressure 111/69, pulse is 73. GENERAL: She is alert, conversant without distress. HEENT: Anicteric sclerae. Oropharynx is moist. CV: Normal S1 and S2. Regular rate and rhythm. CHEST: Breath sounds. ABDOMEN: Soft. No distention. No tympany. There is some postoperative bruising and ecchymosis. EXTREMITIES: No edema. LABORATORY DATA: None. ASSESSMENT: Status post reduction of gastric volvulus and re-suturing of diaphragm following conversion of fundoplication from Toupet to full Ghazala and hiatal hernia repair. The patient had a gastrostomy tube placement to anchor the stomach. Currently, she is doing well clinically. RECOMMENDATIONS: Overall doing well from a GI standpoint. The patient can be discharged to home from GI standpoint. The G-tube can be removed in 6 to 8 weeks if everything resolves nicely. GI will sign off for now, please recall if needed. Job ID: [id number]
[2020-05-10] MEDS: Acetaminophen W/ Codeine 5 ML UDCUP PO PRN (16:32)
[2020-05-10] MEDS: Amlodipine 5 MG TAB PO SCH (20:06)
[2020-05-10] MEDS: Enoxaparin Sodium 40 MG/0.4 ML SYRINGE SC SCH (20:08)
[2020-05-11] MEDS: Acetaminophen W/ Codeine 5 ML UDCUP PO PRN (00:15)
[2020-05-11] MEDS: D5 1/2 NS w/20 mEq KCL 1,000 ML IV SCH (07:32)
--- NOTE | 2020-05-11 09:32 | RAD ---
PORTABLE CHEST: Date: 05/11/2020 HISTORY: Follow-up pneumothorax. COMPARISON: 05/06/2020. FINDINGS: Small left apical pneumothorax shows no significant change. Lungs again show evidence of left effusion with left basilar atelectasis and/or infiltrate, similar t o the prior exam. The right lung remains clear. IMPRESSION: Small left apical pneumothorax and left basilar effusion and infiltrate with atelectasis again noted. POS: AH
[2020-05-11] MEDS: Carvedilol 3.125 MG TAB PO SCH (09:34)
[2020-05-11] MEDS: Lisinopril 20 MG TAB PO SCH (09:34)
[2020-05-11 11:59] VITALS: BP 121/74; TEMP 98.3
--- NOTE | 2020-05-11 14:45 | PRG ---
DATE OF SERVICE: SUBJECTIVE: Elidia Bowers is doing well today. She is tolerating her full liquid diet. OBJECTIVE: LUNGS: Clear to auscultation. CARDIAC: Regular rate and rhythm without murmur or gallop. ABDOMEN: Soft and nontender. G-tube management was explained to the family. VITAL SIGNS: Temperature 98.3 degrees, pulse 73, blood pressure 121/74. ASSESSMENT AND PLAN: She is doing well today. She is going home today with Tylenol Elixir with codeine prescribed for her . Follow up with Dr. Gorman next week or two. Full liquids. Advance to puree soft diet. Avoid bread, salads and red meat and hard to swallow digest foods. Slowly progress to those over the next 2 weeks. G-tube available for medications and nutritional supplementation as desired. Job ID: [id number]
[2020-05-13] MEDS ORDERED: Estradiol 0.1mg/24 Hour Patch (Weekly) TD SCH (09:00)
== END 2020-05-11 14:30 | disposition home or self-care (01) | DRG 327 ==
LOC: SDC 09:33 → SURG B 15:28 → OBSVTOIN 05-06 15:19
PROVIDERS: ADMIT Surgery; ATTEND Surgery
PROC: 0BUT4JZ Supplement Diaphragm with Synthetic Substitute, Percutaneous Endoscopic Approach (ICD-10-PCS; principal; 2020-05-05)
PROC: 0DS64ZZ Reposition Stomach, Percutaneous Endoscopic Approach (ICD-10-PCS; 2020-05-09)
PROC: 0DH63UZ Insertion of Feeding Device into Stomach, Percutaneous Approach (ICD-10-PCS; 2020-05-09)
PROC: 0DJ08ZZ Inspection of Upper Intestinal Tract, Via Natural or Artificial Opening Endoscopic (ICD-10-PCS; 2020-05-09)
DX: K44.9 Diaphragmatic hernia without obstruction or gangrene (principal); K31.1 Adult hypertrophic pyloric stenosis; K21.00 Gastro-esophageal reflux disease with esophagitis, without bleeding; Z20.828 Contact with and (suspected) exposure to other viral communicable diseases; I10 Essential (primary) hypertension; E78.5 Hyperlipidemia, unspecified; I48.0 Paroxysmal atrial fibrillation; J30.2 Other seasonal allergic rhinitis; K31.89 Other diseases of stomach and duodenum; Z98.51 Tubal ligation status; Z90.710 Acquired absence of both cervix and uterus; Z79.899 Other long term (current) drug therapy
CPT/HCPCS: 36415; 36416; 71045; 74220; 80048; 85025; 96365; 96372; 96375; 96376; C9113; G0378; J0690; J1100; J1200; J1450; J1650; J2001; J2250; J2405; J2550; J2704; J3010; J3480; J3490; Q4130; Q9963; S0028

== ENCOUNTER 2020-05-19 14:31 | Observation (INO) | payer BC ==
[2020-05-19] MEDS ORDERED: (Evolocumab [Repatha Sureclick] 140 MG/ML Pen.Injctr) SC SCH (15:45)
[2020-05-19] MEDS ORDERED: Labetalol HCl 100 MG/20 ML VIAL SLOW IVP PRN (16:05)
[2020-05-19 16:10] VITALS: BMI 21.2
[2020-05-19] MEDS ORDERED: Sodium Chloride 0.9% 2,000 ML IV SCH (16:30)
[2020-05-19] MEDS ORDERED: Fentanyl 100 MCG/2 ML VIAL SLOW IVP PRN (16:30)
[2020-05-19] MEDS ORDERED: Ondansetron ODT 4 MG TAB PO PRN (16:30)
[2020-05-19] MEDS: Ondansetron PF 4 MG/2 ML Vial IVP PRN (16:42)
[2020-05-19] MEDS ORDERED: Sodium Chloride 0.9% (PF) 10 ML VIAL FS PRN (16:45)
[2020-05-19 17:14] LABS: Anion Gap 12 mmol/L (10-20); BUN (Urea Nitrogen) 12 mg/dL (9.8-20.1); Calc. Creatinine Clearance 86 mL/min (70-130); Calcium 8.8 mg/dL (7.8-10.44); Carbon Dioxide 26 mmol/L (22-29); Chloride 104 mmol/L (98-107); Estimated GFR-MDRD 82; Glucose 95 mg/dL (70-105); Potassium 3.8 mmol/L (3.5-5.1); Sodium 138 mmol/L (136-145)
--- NOTE | 2020-05-19 17:27 | RAD ---
KUB INDICATION: Nausea and dysphagia COMPARISON: Barium esophagram dated May 08, 2020 FINDINGS: Bowel gas: Nonspecific but without evidence of obstruction. There is a percutaneous gastrostomy tube overlying the left upper quadrant of the abdomen. Surgical clips are again seen near the gastroesophageal junction. There is retained barium within diverticula of the colon. There is a mild amount retained stool within the colon. Lung bases: There is improvement in left-sided pleural effusion with improved aeration of the left bharat ng base. Additional findings: No suspicious calcification demonstrated. Osseous structures: No acute osseous abnormality is demonstrated. IMPRESSION: 1. No acute abnormality.
[2020-05-19] MEDS ORDERED: Magnesium Citrate 300 ML BOT PO SCH (17:45)
[2020-05-19 18:14] LABS: Band 15 % (5-11); Eosinophils 3 % (0-10); Hemoglobin 12.5 g/dL (12.0-16.0); Lymphocytes 25 % (21-51); MDiff Complete? YES; Mean Corpuscular HGB CONC 34.6 g/dL (32.0-36.0); Mean Corpuscular Hemoglobin 32.1 pg (27.0-31.0); Mean Corpuscular Volume 92.9 fL (78.0-98.0); Mean Platelet Volume 10.2 fL (7.4-10.4); Monocytes 11 % (0-10); Neutrophil 45 % (42-75); Platelet Count 165 thou/uL (130-400); Platelet Morphology Comment Appears Adequate; Polychromasia SLIGHT = 2-3 cells (100X) (0-2/hpf); RBC Distribution Width 11.1 % (11.5-14.5); Reactive Lymphocytes 1 % (0-10); Red Blood Cell (RBC) Count 3.89 mill/uL (4.20-5.40); White Blood Cell (WBC) Count 6.3 thou/uL (4.8-10.8)
[2020-05-19] MEDS: D5 1/2 NS w/20 mEq KCL 1,000 ML IV SCH (18:29)
--- NOTE | 2020-05-19 19:20 | HP ---
CHIEF COMPLAINT: Nausea, vomiting, dehydration. HISTORY OF PRESENT ILLNESS: This is a 54-year-old female who had recent redo fundoplication and hiatal hernia repair complicated by postop immediate recurrence with volvulus of stomach. I had performed an emergent laparoscopy for that and with revision of her hiatal hernia repair and PEG feeding tube placement for an anchor. She was doing well for the first few days postop, however, she has had increasing difficulty even swallowing liquids. She notes abdominal bloating and pain even with using her PEG feeding tube. She has had a couple loose stools when she put something in her PEG tube, but no real formed bowel movements. She has some drainage from her PEG tube site. PAST MEDICAL HISTORY: Includes hypertension requiring multiple medications, GERD, hiatal hernia. ALLERGIES: SULFA, IODINE, BACTRIM, OXYCODONE, IBUPROFEN. SURGICAL HISTORY: Tubal ligation, D and C, hysterectomy, elbow surgery, knee surgery, left lumpectomy, heart catheterization, hiatal hernia repair multiple. MEDICATIONS: Taken daily include: 1. Lisinopril. 2. Carvedilol. 3. Amlodipine. 4. Repatha. 5. Aspirin. 6. Nexium. 7. Estradiol. 8. Daina. 9. Vitamins. REVIEW OF SYSTEMS: Negative. PHYSICAL EXAMINATION: HEENT: Sclerae anicteric. Oropharynx clear. LYMPHATIC: No lymphadenopathy. CHEST: Clear. HEART: Regular rate. ABDOMEN: Soft. It is distended. Diffuse mildly tender. Incision is healing well. No infection. PEG tube site is clear without evidence of infection. The PEG tube is loosened slightly. EXTREMITIES: No ischemia or edema to extremities. ASSESSMENT: Severe dehydration, inability to tolerate p.o., readmit for failure to thrive, nausea, vomiting, dehydration. We will get a KUB to rule out fecal impaction. If positive, I would give her some magnesium citrate through her percutaneous endoscopic gastrostomy tube. I think that would help with her dysphagia as well. May also perform barium swallow if there is any question about her inability to advance on her diet. Job ID: [id number]
[2020-05-19] MEDS: Amlodipine 5 MG TAB PO SCH (20:12)
[2020-05-19] MEDS: Carvedilol 3.125 MG TAB PO SCH (20:12)
[2020-05-19] MEDS: Pantoprazole 40 MG VIAL IVP SCH (20:13)
[2020-05-20] MEDS: Ondansetron PF 4 MG/2 ML Vial IVP PRN ×2 (00:35→09:32)
[2020-05-20] MEDS: D5 1/2 NS w/20 mEq KCL 1,000 ML IV SCH ×4 (02:35→22:25)
[2020-05-20] MEDS: Lisinopril 20 MG TAB PO SCH (08:49)
[2020-05-20] MEDS: Carvedilol 3.125 MG TAB PO SCH ×2 (08:49→22:11)
[2020-05-20] MEDS ORDERED: FLU VACC QS2020-21(6MOS UP)/PF 60 MCG/0.5 ML SYRINGE IM ONE (09:00)
--- NOTE | 2020-05-20 09:07 | PRG ---
DATE OF SERVICE: 05/20/2020 SUBJECTIVE: Ms. Bowers feels better this morning. She had multiple loose stools overnight. Her bloating is improved. Her pain at her PEG tube site is improved. OBJECTIVE: VITAL SIGNS: Blood pressure is 126/76, pulse 62, respirations 18, her temperature is 98.1. Urine output was brisk at 2700 overnight. She had 5 bowel movements that were recorded. ABDOMEN: Softer. Her incisions are all healing well. Her PEG tube site is clean. LABORATORY DATA: White blood cell count is 6, hemoglobin is 12, platelet count is 165. Sodium 138, potassium 3.8, creatinine 0.73. Her plain film last night revealed there was some air distention of the stomach. There was some stool in the right colon. ASSESSMENT: Nausea, vomiting, severe dehydration, status post revision of hiatal hernia. PLAN: She is improved, I want to make sure she can tolerate full liquids. We will also use her PEG tube for some traditional tube feeds today and see if she tolerates that as an adjunct for her nutrition until she is able to take more p.o. If she struggles with p.o. intake, we will get barium study to re-evaluate her fundoplication. Job ID: [id number]
[2020-05-20] MEDS: Amlodipine 5 MG TAB PO SCH (22:11)
[2020-05-20] MEDS: Pantoprazole 40 MG VIAL IVP SCH (22:12)
[2020-05-21] MEDS: D5 1/2 NS w/20 mEq KCL 1,000 ML IV SCH (06:20)
[2020-05-21] MEDS: Lisinopril 20 MG TAB PO SCH (10:12)
[2020-05-21] MEDS: Carvedilol 3.125 MG TAB PO SCH (10:14)
[2020-05-21 16:06] VITALS: BP 150/72; TEMP 97.6
--- NOTE | 2020-05-23 08:59 | DIS ---
DATE OF ADMISSION: 05/19/2020 DATE OF DISCHARGE: 05/21/2020 ADMIT DIAGNOSES: Nausea, vomiting, dehydration, status post hiatal hernia repair. DISCHARGE DIAGNOSES: Nausea, vomiting, dehydration, status post hiatal hernia repair. PROCEDURES: None. CONDITION ON DISCHARGE: Improved. STAFF: Dr. Gorman. HOSPITAL COURSE: On 05/21/2020, the patient is doing well. Her nausea and bloating improved considerably with mag citrate. She is tolerating tube feeds, one syringe at a time. She is tolerating full liquids by mouth as well. She has mild reflux symptoms. Plan is discharge home today. She will do one syringe full of tube feeds, 3 to 4 times a day. She can double that if she would like and follow it with some water flush. She can do pureed diet or casserole diet by mouth as tolerated, and she will follow up with me later on in the week. Prescription for tube feeds and Zofran sent over to her pharmacy. Job ID: [id number]
== END 2020-05-21 16:04 | disposition home or self-care (01) ==
LOC: SJJU 15:20
PROVIDERS: ADMIT Surgery; ATTEND Surgery
DX: E86.0 Dehydration (principal); R11.2 Nausea with vomiting, unspecified; I10 Essential (primary) hypertension; K21.9 Gastro-esophageal reflux disease without esophagitis; Z79.82 Long term (current) use of aspirin; Z79.899 Other long term (current) drug therapy; Z91.041 Radiographic dye allergy status; Z88.2 Allergy status to sulfonamides; Z87.19 Personal history of other diseases of the digestive system; Z88.5 Allergy status to narcotic agent; Z88.8 Allergy status to other drugs, medicaments and biological substances
CPT/HCPCS: 36415; 74019; 80048; 85025; 96361; 96374; 96375; 96376; C9113; G0378; G0379; J2405; J3010; J3480

== ENCOUNTER 2020-06-06 09:38 | Outpatient (CLI) | payer BC ==
[2020-06-07 10:23] LABS: SARS-CoV-2 MS2 Positive; SARS-CoV-2 N Gene Negative; SARS-CoV-2 S Gene Negative; SARS-CoV-2 by NAA Not Detected (NotDetected); SARS-CoV-2 orf1ab Negative
== END 2020-06-06 09:39 | disposition home or self-care (01) ==
LOC: LABBT 09:38
PROVIDERS: ATTEND Surgery
DX: R13.10 Dysphagia, unspecified (principal); Z20.828 Contact with and (suspected) exposure to other viral communicable diseases
CPT/HCPCS: 87635; U0003

== ENCOUNTER 2020-06-09 08:58 | Outpatient (CLI) | payer BC ==
--- NOTE | 2020-06-09 11:39 | RAD ---
XR UGI Air Con W/Small Bowel History: Abdominal pain. Hernia repair. Evaluate right. Comparison: Swallow esophagram May 08, 2020 Findings: 60 mL Gastrografin contrast administered to the patient orally. No gas-forming crystals wer e given. Esophageal primary and secondary peristalsis was normal. Adequate passage of contrast through the GE junction. The wrap is intact and not too tight nor too loose. There is distention of the stomach with minimal peristalsis. Minimal contractility the stomach. The p atient was subsequently put in the right lateral decubitus position and wall around the room for approximately 45 minutes. Contrast transited rapidly through the small bowel into the large bowel wit h contrast within the rectum within 1 hour. Lastly approximately 30 mL of contrast was instilled into the gastrostomy tube to evaluate the unders urface of the wrap which was intact. Impression: 1. Normal esophageal peristalsis with contrast transiting through the GE junction without narrowing o r dilatation. 2. Relatively decreased gastric contractility although using patient maneuvers to allow gravity drain age of the stomach into the proximal small bowel, there is rapid transit of contrast through the small and large bowel within 1 hour. 3. Satisfactory location of the gastrostomy tube. 4. Intact wrap undersurface without unraveling. Approximate fluoroscopy time: 2 minutes
== END 2020-06-09 08:59 | disposition home or self-care (01) ==
LOC: RAD 08:58
PROVIDERS: ATTEND Surgery
DX: R13.10 Dysphagia, unspecified (principal); Z93.1 Gastrostomy status
CPT/HCPCS: 74246

== ENCOUNTER 2022-02-15 11:18 | Outpatient (CLI) | payer BC ==
[2022-02-15 12:52] LABS: #Basophils 0.1 10x3/uL (0.0-0.2); #Eosinphils 0.2 10x3/uL (0.0-0.5); #Monocytes 0.7 10x3/uL (0.0-1.1); #Neutrophils 3.8 10x3/uL (1.5-8.4); %Basophils 0.8 % (0.0-2.0); %Eosinophils 2.5 % (0.0-6.0); %Lymphocytes 27.6 % (18.0-47.0); %Neutrophils 57.8 % (40.0-75.0); Hemoglobin 12.8 g/dL (12.0-15.5); Mean Corpuscular HGB CONC 34.2 g/dL (32.0-36.0); Mean Corpuscular Hemoglobin 30.4 pg (27.0-33.0); Mean Corpuscular Volume 88.8 fl (81.6-98.3); Mean Platelet Volume 11.9 fl (7.4-10.4); Platelet Count 211 10x3/uL (150-450); RBC Distribution Width 12.3 % (11.5-14.5); Red Blood Cell (RBC) Count 4.21 10x6/uL (3.90-5.03); White Blood Cell (WBC) Count 6.5 10x3/uL (3.5-10.5)
[2022-02-15 13:10] LABS: Anion Gap 13 mmol/L (10-20); BUN (Urea Nitrogen) 13 mg/dL (9.8-20.1); Calc. Creatinine Clearance 0 mL/min (70-130); Calcium 8.7 mg/dL (7.8-10.44); Carbon Dioxide 26 mmol/L (22-29); Chloride 106 mmol/L (98-107); Estimated GFR 97; Glucose 74 mg/dL (70-105); Sodium 141 mmol/L (136-145)
== END 2022-02-15 11:19 | disposition home or self-care (01) ==
LOC: LABBT 11:18
PROVIDERS: ATTEND Surgery
DX: Z01.818 Encounter for other preprocedural examination (principal); K31.1 Adult hypertrophic pyloric stenosis; Z20.822 Contact with and (suspected) exposure to COVID-19
CPT/HCPCS: 80048; 85025; 87811; 93005; 93010

== ENCOUNTER 2022-02-20 06:55 | Inpatient (IN) | payer BC ==
[2022-02-20] MEDS ORDERED: Propofol 500 MG/50 ML VIAL ONE ×2 (09:54→12:53)
[2022-02-20] MEDS ORDERED: Dexmedetomidine 200 MCG/2 ML VIAL ONE (09:54)
[2022-02-20] MEDS ORDERED: SUGAMMADEX SODIUM 200 MG/2 ML VIAL ONE (09:54)
[2022-02-20] MEDS ORDERED: Ketamine 50 MG/ML (10ML VIAL) ONE (09:54)
[2022-02-20] MEDS ORDERED: fentaNYL Citrate/PF 100 MCG/2 ML SYRINGE ONE (09:54)
[2022-02-20] MEDS ORDERED: Bupivacaine 0.25% 10 ML VIAL ONE (09:56)
[2022-02-20] MEDS ORDERED: Lidocaine 1% w/Epinephrine 1:100K 20 ML VIAL ONE (09:56)
[2022-02-20] MEDS ORDERED: Sodium Chloride 0.9% 100 ML ONE (10:12)
[2022-02-20] MEDS ORDERED: CEFAZOLIN 2 GM VIAL ONE (10:12)
[2022-02-20] MEDS ORDERED: Glycopyrrolate 0.2 MG/ML 5 ML SYRINGE ONE (10:20)
[2022-02-20] MEDS ORDERED: PROPOFOL 200 MG/20 ML VIAL ONE (10:20)
[2022-02-20] MEDS ORDERED: Labetalol HCl 100 MG/20 ML VIAL ONE (10:20)
[2022-02-20] MEDS ORDERED: Succinylcholine 200 MG/10 ml SYRINGE FS ONE (10:20)
[2022-02-20] MEDS ORDERED: Rocuronium Bromide 10 MG/ML (10ML VIAL) ONE (10:20)
[2022-02-20] MEDS ORDERED: Ondansetron PF 4 MG/2 ML Vial ONE (10:20)
[2022-02-20] MEDS ORDERED: Lidocaine 1% PF 5 ML VIAL ONE (10:20)
[2022-02-20] MEDS ORDERED: Midazolam HCl 2 mg/2 ml Vial ONE (10:49)
[2022-02-20] MEDS ORDERED: Rocuronium Bromide 50 MG/5 ML VIAL ONE (13:04)
[2022-02-20] MEDS ORDERED: Promethazine HCl 25 MG/ML VIAL IVPB PRN (13:09)
[2022-02-20] MEDS ORDERED: Promethazine HCl 25 MG/ML VIAL IM PRN ×3 (13:09→16:45)
[2022-02-20] MEDS ORDERED: Ondansetron HCl/PF 4 MG/2 ML Vial IVP PRN (13:09)
[2022-02-20] MEDS ORDERED: Fentanyl 100 MCG/2 ML VIAL ONE ×2 (14:51→16:00)
[2022-02-20] MEDS ORDERED: Dextrose 5% in Water 1,000 ML IV PRN (15:15)
[2022-02-20] MEDS ORDERED: hydrALAZINE 20 MG/ML VIAL SLOW IVP PRN (15:15)
[2022-02-20] MEDS ORDERED: Hydrocodone-Acetamin 15 ML UDCUP PO PRN (15:15)
[2022-02-20] MEDS ORDERED: Dextrose 50% Abboject 50 ML SYRINGE SLOW IVP PRN (15:15)
[2022-02-20] MEDS ORDERED: Ondansetron PF 4 MG/2 ML Vial IVP PRN (15:15)
[2022-02-20] MEDS ORDERED: diphenhydrAMINE 50 MG/ML VIAL IVP PRN (15:15)
[2022-02-20] MEDS ORDERED: Zolpidem Tartrate 5 MG TAB PO PRN (16:45)
[2022-02-20] MEDS ORDERED: Naloxone HCl 0.4 mg/ml Vial IV PRN (16:45)
[2022-02-20] MEDS ORDERED: diphenhydrAMINE 50 MG/ML VIAL IM/IV PRN (16:45)
[2022-02-20] MEDS ORDERED: Fentanyl CADD 100 ML IVPB SCH (16:45)
[2022-02-20] MEDS ORDERED: diphenhydrAMINE 25 MG CAP PO PRN (16:45)
[2022-02-20] MEDS: Ondansetron PF 4 MG/2 ML Vial IVP PRN (19:09)
[2022-02-20] MEDS: D5 1/2 NS w/20 mEq KCL 1,000 ML IV SCH ×2 (20:31→22:29)
[2022-02-20] MEDS: Carvedilol 3.125 MG TAB PO SCH (21:16)
[2022-02-20] MEDS: hydrALAZINE 25 MG TAB PO SCH (21:16)
[2022-02-21 05:31] LABS: #Lymphocytes 0.8 thou/uL (1.20-3.40); #Neutrophils 14.5 thou/uL (1.40-6.50); %Eosinophils 0.1 % (0.0-10.0); %Lymphocytes 4.9 % (21.0-51.0); %Monocytes 5.9 % (0.0-10.0); %Neutrophils 89.1 % (42.0-75.0); Hemoglobin 13.5 g/dL (12.0-16.0); Mean Corpuscular HGB CONC 33.1 g/dL (32.0-36.0); Mean Corpuscular Hemoglobin 31.1 pg (27.0-31.0); Mean Corpuscular Volume 93.8 fL (78.0-98.0); Mean Platelet Volume 9.4 fL (7.4-10.4); Platelet Count 172 thou/uL (130-400); RBC Distribution Width 11.4 % (11.5-14.5); Red Blood Cell (RBC) Count 4.35 mill/uL (4.20-5.40); White Blood Cell (WBC) Count 16.2 thou/uL (4.8-10.8)
[2022-02-21 05:50] LABS: Anion Gap 13 mmol/L (10-20); BUN (Urea Nitrogen) 12 mg/dL (9.8-20.1); Calc. Creatinine Clearance 89 mL/min (70-130); Calcium 8.8 mg/dL (7.8-10.44); Carbon Dioxide 26 mmol/L (22-29); Chloride 103 mmol/L (98-107); Estimated GFR 88; Glucose 162 mg/dL (70-105); Potassium 4.5 mmol/L (3.5-5.1); Sodium 137 mmol/L (136-145)
[2022-02-21] MEDS: D5 1/2 NS w/20 mEq KCL 1,000 ML IV SCH ×4 (05:59→20:11)
[2022-02-21] MEDS: Enoxaparin Sodium 40 MG/0.4 ML SYRINGE SC SCH (08:22)
[2022-02-21] MEDS: hydrALAZINE 25 MG TAB PO SCH ×2 (08:23→19:37)
[2022-02-21] MEDS: Carvedilol 3.125 MG TAB PO SCH ×2 (08:23→19:37)
[2022-02-21] MEDS: Pantoprazole 40 MG VIAL IVP SCH (08:25)
[2022-02-21] MEDS: Ondansetron PF 4 MG/2 ML Vial IVP PRN (08:29)
[2022-02-21] MEDS ORDERED: Lisinopril 20 MG TAB PO SCH (09:00)
[2022-02-21] MEDS ORDERED: Promethazine HCl 25 MG/ML VIAL IM SCH (12:15)
[2022-02-21] MEDS ORDERED: Morphine 2 MG/ML VIAL SLOW IVP SCH (12:15)
[2022-02-21] MEDS ORDERED: Morphine Sulfate 100 MG in Dextrose 5% in Water 98 ML IV SCH (19:00)
[2022-02-21] MEDS: Lisinopril 10 MG TAB PO SCH (19:37)
[2022-02-21 19:57] VITALS: BMI 23.9
[2022-02-22] MEDS: D5 1/2 NS w/20 mEq KCL 1,000 ML IV SCH ×2 (05:12→11:27)
[2022-02-22] MEDS: Enoxaparin Sodium 40 MG/0.4 ML SYRINGE SC SCH (10:03)
[2022-02-22] MEDS: Carvedilol 3.125 MG TAB PO SCH ×2 (10:03→20:36)
[2022-02-22] MEDS: Lisinopril 10 MG TAB PO SCH ×2 (10:04→20:36)
[2022-02-22] MEDS: hydrALAZINE 25 MG TAB PO SCH ×2 (10:05→20:36)
[2022-02-22] MEDS: Pantoprazole 40 MG VIAL IVP SCH (10:05)
[2022-02-22] MEDS ORDERED: Morphine 4 MG/ML VIAL SLOW IVP PRN (10:53)
[2022-02-22] MEDS: Ketorolac Tromethamine 30 MG/ML VIAL IVP PRN ×2 (11:30→20:42)
[2022-02-22] MEDS: Hydrocodone-Acetamin 15 ML UDCUP PO PRN ×2 (17:53→23:46)
[2022-02-23] MEDS: D5 1/2 NS w/20 mEq KCL 1,000 ML IV SCH (01:35)
[2022-02-23] MEDS: Ketorolac Tromethamine 30 MG/ML VIAL IVP PRN (04:00)
[2022-02-23 09:28] VITALS: TEMP 98.3
[2022-02-23] MEDS: Carvedilol 3.125 MG TAB PO SCH (09:44)
[2022-02-23] MEDS: Lisinopril 10 MG TAB PO SCH (09:45)
[2022-02-23] MEDS: hydrALAZINE 25 MG TAB PO SCH (09:45)
[2022-02-23] MEDS: Pantoprazole 40 MG VIAL IVP SCH (09:45)
[2022-02-23] MEDS: Enoxaparin Sodium 40 MG/0.4 ML SYRINGE SC SCH (09:45)
[2022-02-23 11:54] VITALS: BP 101/59
== END 2022-02-23 15:10 | disposition home or self-care (01) | DRG 327 ==
LOC: SDC 06:55 → SURG A 14:12
PROVIDERS: ADMIT Surgery; ATTEND Surgery
PROC: 0DB64ZZ Excision of Stomach, Percutaneous Endoscopic Approach (ICD-10-PCS; principal; 2022-02-20)
PROC: 0D164ZA Bypass Stomach to Jejunum, Percutaneous Endoscopic Approach (ICD-10-PCS; 2022-02-20)
PROC: 8E0W4CZ Robotic Assisted Procedure of Trunk Region, Percutaneous Endoscopic Approach (ICD-10-PCS; 2022-02-20)
DX: K21.9 Gastro-esophageal reflux disease without esophagitis (principal); K31.1 Adult hypertrophic pyloric stenosis; K44.9 Diaphragmatic hernia without obstruction or gangrene; Z20.822 Contact with and (suspected) exposure to COVID-19; K66.0 Peritoneal adhesions (postprocedural) (postinfection); R13.10 Dysphagia, unspecified; I25.10 Atherosclerotic heart disease of native coronary artery without angina pectoris; I10 Essential (primary) hypertension; Z88.1 Allergy status to other antibiotic agents; Z88.6 Allergy status to analgesic agent; Z91.041 Radiographic dye allergy status; Z88.2 Allergy status to sulfonamides; Z79.899 Other long term (current) drug therapy; Z79.82 Long term (current) use of aspirin; Z98.51 Tubal ligation status; Z90.710 Acquired absence of both cervix and uterus; Z82.49 Family history of ischemic heart disease and other diseases of the circulatory system; Z83.3 Family history of diabetes mellitus; Z80.9 Family history of malignant neoplasm, unspecified; Z82.3 Family history of stroke
CPT/HCPCS: 36415; 80048; 85025; 88307; 94760; C9113; J0690; J1650; J1885; J2250; J2270; J2405; J2550; J2704; J2710; J3010; J3480; J3490; J7070; S0020

== ENCOUNTER 2022-07-10 10:57 | Outpatient (CLI) | payer BC ==
[2022-07-10 11:52] LABS: #Eosinphils 0.2 10x3/uL (0.0-0.5); #Monocytes 0.6 10x3/uL (0.0-1.1); #Neutrophils 5.1 10x3/uL (1.5-8.4); %Basophils 0.5 % (0.0-2.0); %Eosinophils 2.6 % (0.0-6.0); %Lymphocytes 22.6 % (18.0-47.0); %Monocytes 7.9 % (0.0-10.0); %Neutrophils 66.3 % (40.0-75.0); Hemoglobin 13.5 g/dL (12.0-15.5); Mean Corpuscular HGB CONC 34.3 g/dL (32.0-36.0); Mean Corpuscular Hemoglobin 30.5 pg (27.0-33.0); Mean Corpuscular Volume 89.1 fl (81.6-98.3); Mean Platelet Volume 11.6 fl (7.4-10.4); Platelet Count 208 10x3/uL (150-450); RBC Distribution Width 12.5 % (11.5-14.5); Red Blood Cell (RBC) Count 4.42 10x6/uL (3.90-5.03); White Blood Cell (WBC) Count 7.7 10x3/uL (3.5-10.5)
[2022-07-10 12:25] LABS: Anion Gap 12 mmol/L (10-20); BUN (Urea Nitrogen) 17 mg/dL (9.8-20.1); Calc. Creatinine Clearance 0 mL/min (70-130); Calcium 8.8 mg/dL (7.8-10.44); Carbon Dioxide 27 mmol/L (22-29); Chloride 104 mmol/L (98-107); Estimated GFR 95; Glucose 90 mg/dL (70-105); Sodium 139 mmol/L (136-145)
[2022-07-10 12:44] LABS: Ferritin 66.44 ng/mL (10-291)
== END 2022-07-10 10:58 | disposition home or self-care (01) ==
LOC: LABBT 10:57
PROVIDERS: ATTEND Surgery
DX: Z01.812 Encounter for preprocedural laboratory examination (principal); K43.9 Ventral hernia without obstruction or gangrene
CPT/HCPCS: 80048; 82607; 82728; 82746; 84425; 85025

== ENCOUNTER 2022-07-13 09:59 | Day surgery (SDC) | payer BC ==
[2022-07-12 10:56] VITALS: BMI 19.0
[2022-07-13] MEDS ORDERED: SUGAMMADEX SODIUM 200 MG/2 ML VIAL ONE (10:52)
[2022-07-13] MEDS ORDERED: Famotidine/PF 20 mg/2ml Vial ONE (10:52)
[2022-07-13] MEDS ORDERED: Fentanyl 250 MCG/5 ML VIAL ONE (10:52)
[2022-07-13] MEDS ORDERED: Scopolamine 1.5 mg/72 hour Patch ONE (11:18)
[2022-07-13] MEDS ORDERED: Bupivacaine/Epinephrine 0.25% 30 ML VIAL ONE ×2 (11:27→11:57)
[2022-07-13] MEDS ORDERED: FENTANYL 50 MCG/ML 1 ML VIAL ONE (11:54)
[2022-07-13] MEDS ORDERED: CEFAZOLIN 2 GM VIAL ONE (12:17)
[2022-07-13] MEDS ORDERED: Sodium Chloride 0.9% 100 ML ONE (12:17)
[2022-07-13] MEDS ORDERED: Phenylephrine 10 MG/ML VIAL ONE (12:25)
[2022-07-13] MEDS ORDERED: Ketorolac Tromethamine 30 MG/ML VIAL ONE (12:25)
[2022-07-13] MEDS ORDERED: Propofol 1,000 MG/100 ML VIAL IV ONE (12:25)
[2022-07-13] MEDS ORDERED: Ondansetron PF 4 MG/2 ML Vial ONE (12:25)
[2022-07-13] MEDS ORDERED: Rocuronium Bromide 10 MG/ML (10ML VIAL) ONE (12:25)
[2022-07-13] MEDS ORDERED: Dexamethasone 20 MG/5 ML VIAL ONE (12:25)
[2022-07-13] MEDS ORDERED: Metoclopramide HCl 10 MG/2 ML VIAL ONE (12:25)
== END 2022-07-13 15:10 | disposition home or self-care (01) ==
LOC: SDC 09:59
PROVIDERS: ATTEND Surgery
PROC: 0JB80ZZ Excision of Abdomen Subcutaneous Tissue and Fascia, Open Approach (ICD-10-PCS; principal; 2022-07-13)
PROC: 0WJG4ZZ Inspection of Peritoneal Cavity, Percutaneous Endoscopic Approach (ICD-10-PCS; principal; 2022-07-13)
DX: M79.89 Other specified soft tissue disorders (principal); K65.4 Sclerosing mesenteritis; I25.10 Atherosclerotic heart disease of native coronary artery without angina pectoris; I10 Essential (primary) hypertension; K21.9 Gastro-esophageal reflux disease without esophagitis; Z79.620 Long term (current) use of immunosuppressive biologic; Z79.82 Long term (current) use of aspirin; Z79.899 Other long term (current) drug therapy; Z88.1 Allergy status to other antibiotic agents; Z88.2 Allergy status to sulfonamides; Z88.5 Allergy status to narcotic agent; Z88.6 Allergy status to analgesic agent; Z91.041 Radiographic dye allergy status
CPT/HCPCS: 88304; J1100; J1885; J2370; J2405; J2704; J2765; J3010; J3490; S0028